=== PATIENT | female | born 1995 | race Caucasian/White ===

== ENCOUNTER 2019-06-26 14:40 | Emergency (ER) | payer BC, MEDICAID ==
[~2019-06-26] VITALS: Ht 177.8 cm; Wt 81.0 kg
[~2019-06-26 14:40] MED LIST: IBUP-1984 PO; NO HOME MEDS; PHEN-786 PO
[2019-06-26 15:55] LABS: CLARITY,URINE SLIGHTLY CLOUDY (Clear); COLOR,URINE YELLOW (Yellow); GLUCOSE, URINE NEGATIVE (Neg); KETONES,URINE NEGATIVE (Neg); LEUKOCYTE ESTERASE ,URINE SMALL (Neg); NITRITES, URINE NEGATIVE (Neg); OCCULT BLOOD,URINE NEGATIVE (Neg); PROTEIN,URINE NEGATIVE (Neg); UROBILINOGEN,URINE 0.2 E.U/dL (0.2-1.0)
[2019-06-26 15:58] LABS: URINE HCG NEGATIVE (NEG)
[2019-06-26 16:05] LABS: UA COLLECTION TYPE CLN CATCH MIDSTREAM
[2019-06-26 16:07] LABS: BACTERIA,URINE 2+ /HPF (Neg); MUCUS STRANDS FEW /LPF (Neg); RBC,URINE NONE SEEN /HPF (0-2); SQUAMOUS EPITHELIAL CELL,UR MANY /LPF (FEW); WBC,URINE 0-4 /HPF (0-4)
[2019-06-26] MEDS ORDERED: FLUC150T66 PO (17:02)
[2019-06-26 18:21] VITALS: BP 118/81
== END 2019-06-26 18:19 | disposition home or self-care (01) ==
LOC: ER 14:41
DX: B37.3 Candidiasis of vulva and vagina (principal); R11.0 Nausea; Z79.899 Other long term (current) drug therapy
CPT/HCPCS: 81001; 81025; 87210; 99283

== ENCOUNTER 2019-06-27 10:44 | Emergency (ER) | payer BC ==
[~2019-06-27] VITALS: Ht 177.8 cm; Wt 83.0 kg
[~2019-06-27 10:44] MED LIST changes: +FLUC150T66 PO
[2019-06-27 11:20] LABS: URINE HCG NEGATIVE (NEG)
[2019-06-27 11:34] LABS: BASOPHILS % (AUTO) 0.4 % (0-1); EOSINOPHILS # (AUTO) 0.1 X10'3 (0-0.9); EOSINOPHILS % (AUTO) 1.4 % (0-6); HEMATOCRIT 37.9 % (35.0-45.0); HEMOGLOBIN 13.3 g/dl (12.0-16.0); LYMPHOCYTES # (AUTO) 1.6 X10'3 (1.1-4.8); LYMPHOCYTES % (AUTO) 25.6 % (21-51); MEAN CORPUSCULAR HEMOGLOBIN 31.5 PG (27.0-31.0); MEAN CORPUSCULAR VOLUME 90.1 FL (78-98); MEAN PLATELET VOLUME 8.2 FL (7.4-10.4); MONOCYTES # (AUTO) 0.6 X10'3 (0-0.9); MONOCYTES % (AUTO) 10.1 % (2-12); NEUTROPHILS # (AUTO) 3.8 X10'3 (1.8-7.7); NEUTROPHILS % (AUTO) 62.5 % (42-75); PLATELET COUNT 325 X10'3 (140-440); RED BLOOD COUNT 4.21 X10'6 (4.20-5.60); RED CELL DISTRIBUTION WIDTH 11.9 % (11.5-14.5); WHITE BLOOD COUNT 6.2 X10'3 (4.5-11.0)
[2019-06-27 11:43] LABS: ALANINE AMINOTRANSFERASE 29 U/L (12-78); ALBUMIN 3.7 G/DL (3.4-5.0); ALBUMIN/GLOBULIN RATIO 0.9 (1.1-1.5); ALKALINE PHOSPHATASE 80 IU/L (46-116); ANION GAP 8 (8-16); ASPARTATE AMINO TRANSFERASE 20 U/L (10-37); BILIRUBIN,TOTAL 0.2 MG/DL (0.1-1.0); BLOOD UREA NITROGEN 7 MG/DL (7-18); CALCIUM 8.6 MG/DL (8.5-10.1); CHLORIDE 105 MMOL/L (99-107); GLUCOSE 125 MG/DL (70-104); LIPASE 134 U/L (73-393); POTASSIUM 3.8 MMOL/L (3.5-5.1); SODIUM 138 MMOL/L (135-145); TOTAL CARBON DIOXIDE 24.8 MMOL/L (24-32); TOTAL PROTEIN 7.7 G/DL (6.4-8.2); eGFR > 90 ML/MIN
--- NOTE | 2019-06-27 13:03 | NUR ---
[facility] CALLED AND WOULD LIKE PATIENT PREPPED FOR TEST BY PROVIDING FLUIDS TO FILL HER BLADDER. GRADUATED CYLINDER OF WATER GIVEN AND PATIENT INSTRUCTED TO LET STAFF KNOW WHEN HER BLADDER FEELS FULL.
[2019-06-27 14:19] LABS: CLARITY,URINE SLIGHTLY CLOUDY (Clear); COLOR,URINE YELLOW (Yellow); GLUCOSE, URINE NEGATIVE (Neg); KETONES,URINE NEGATIVE (Neg); LEUKOCYTE ESTERASE ,URINE NEGATIVE (Neg); NITRITES, URINE NEGATIVE (Neg); OCCULT BLOOD,URINE NEGATIVE (Neg); PROTEIN,URINE NEGATIVE (Neg); UROBILINOGEN,URINE 0.2 E.U/dL (0.2-1.0)
[2019-06-27 14:23] LABS: UA COLLECTION TYPE CLN CATCH MIDSTREAM
[2019-06-27 14:24] LABS: BACTERIA,URINE 2+ /HPF (Neg); MUCUS STRANDS NONE SEEN /LPF (Neg); RBC,URINE NONE SEEN /HPF (0-2); SQUAMOUS EPITHELIAL CELL,UR MANY /LPF (FEW); WBC,URINE 0-4 /HPF (0-4)
[2019-06-27 14:33] VITALS: BP 127/71
== END 2019-06-27 14:32 | disposition home or self-care (01) ==
LOC: ER 10:44
DX: R10.2 Pelvic and perineal pain (principal); R10.32 Left lower quadrant pain; B37.3 Candidiasis of vulva and vagina; Z79.899 Other long term (current) drug therapy
CPT/HCPCS: 36415; 76830; 76856; 80053; 81001; 81025; 83690; 85025; 99284

== ENCOUNTER 2020-02-23 08:37 | Emergency (ER) | payer BC, SELFPAY ==
[~2020-02-23] VITALS: Ht 177.8 cm; Wt 86.4 kg
[~2020-02-23 08:37] MED LIST changes: -FLUC150T66 PO
[2020-02-23 08:40] VITALS: BP 141/82
--- NOTE | 2020-02-23 08:50 | NUR ---
Patient seen and assessed by provider.
[2020-02-23] MEDS ORDERED: XYL25J TOP (08:57)
[2020-02-23] MEDS ORDERED: PENI250T2 PO (08:57)
--- NOTE | 2020-02-23 09:50 | NUR ---
Called patient and notified regarding negative strep results.
== END 2020-02-23 09:51 | disposition home or self-care (01) ==
LOC: EEVIPCON 08:37 → ER 08:37
DX: J02.9 Acute pharyngitis, unspecified (principal); R50.9 Fever, unspecified; Z79.2 Long term (current) use of antibiotics; Z79.899 Other long term (current) drug therapy
CPT/HCPCS: 36415; 87081; 87880; 99283